=== PATIENT | male | born 1985 | race Caucasian/White ===

== ENCOUNTER 2017-05-16 16:08 | Outpatient (CLI) ==
[2016-06-27 15:04] VITALS: BMI 29.8
[2017-05-16 16:19] LABS: BASOPHILS # (AUTO) 0.1 K/uL (0-0.2); BASOPHILS % (AUTO) 0.9 % (0.0-3.0); EOSINOPHILS % (AUTO) 0.3 % (0.0-7.0); HEMATOCRIT 43.5 % (42.0-52.0); HEMOGLOBIN 15.4 g/dl (14.0-18.0); IMMATURE GRANULOCYTE % (AUTO) 0.2 % (0.0-5.0); LYMPHOCYTES # (AUTO) 1.9 K/uL (0.60-3.4); LYMPHOCYTES % (AUTO) 32.5 (10.0-50.0); MEAN CORPUSCULAR HEMOGLOBIN 32.2 pg (27.0-31.0); MEAN CORPUSCULAR HGB CONC 35.4 (31.8-35.4); MONOCYTES # (AUTO) 0.5 K/uL (0.4-2.0); MONOCYTES % (AUTO) 7.9 (0-10); NEUTROPHILS # (AUTO) 3.4 K/ul (2.0-6.9); NEUTROPHILS % (AUTO) 58.2; PLATELET COUNT 254 10^3/uL (140-440); RED BLOOD COUNT 4.78 10^6/ul (4.70-6.10); WHITE BLOOD COUNT 5.82 K/ul (4.2-10.2)
[2017-05-16 16:25] LABS: BILIRUBIN,URINE Negative (NEGATIVE); KETONES,URINE Negative (NEGATIVE); LEUKOCYTE ESTERASE ,URINE Negative (NEGATIVE); NITRITE,URINE Negative (NEGATIVE); PH,URINE 6.5 (5-9); PROTEIN,URINE Negative (NEGATIVE); URINE, BLOOD Negative (NEGATIVE)
[2017-05-16 16:26] LABS: ADD URINE MICROSCOPIC NO
[2017-05-16 16:32] LABS: ALBUMIN 4.5 g/dL (3.4-5.0); ALBUMIN/GLOBULIN RATIO 1.18; BILIRUBIN,TOTAL 0.83 mg/dL (0.00-1.20); BUN/CREATININE RATIO 13.68; CALCIUM 10.3 mg/dL (8.2-10.2); CHOL/HDL RATIO 5.5 (4.5-6.4); CREATININE 0.95 mg/dL (0.60-1.10); TOTAL PROTEIN 8.3 g/dL (6.4-8.2)
== END 2017-05-16 16:09 | disposition home or self-care (01) ==
LOC: LAB 16:08
PROVIDERS: ATTEND General Practice
DX: I10 Essential (primary) hypertension (principal); Z79.899 Other long term (current) drug therapy
CPT/HCPCS: 36415; 80053; 80061; 81001; 85025

== ENCOUNTER 2017-11-14 15:37 | Outpatient (CLI) ==
[2016-06-27 15:04] VITALS: BMI 29.8
--- NOTE | 2017-11-14 15:59 | DI ---
EXAM: CHEST FRONTAL AND LATERAL VIEWS HISTORY: Cough. COMPARISON: None FINDINGS: Heart size and mediastinal contour within normal limits. No acute infiltrates. Normal vascularity with no pleural fluid or pneumothorax. The bony thorax has no acute finding. Stabilizati on hardware over the lower cervical spine. IMPRESSION: No acute process.
== END 2017-11-14 15:38 | disposition home or self-care (01) ==
LOC: RAD 15:37
PROVIDERS: ATTEND General Practice
DX: R05 Cough (principal); M54.9 Dorsalgia, unspecified

== ENCOUNTER 2018-09-10 12:23 | Outpatient (CLI) ==
[2016-06-27 15:04] VITALS: BMI 29.8
== END 2018-09-10 12:24 | disposition home or self-care (01) ==
LOC: RHC-LAB 12:23
PROVIDERS: ATTEND General Practice
DX: J02.9 Acute pharyngitis, unspecified (principal)
CPT/HCPCS: 87502; 87651

== ENCOUNTER 2019-01-09 08:51 | Outpatient (CLI) ==
[2016-06-27 15:04] VITALS: BMI 29.8
== END 2019-01-09 08:52 | disposition home or self-care (01) ==
LOC: RHC-LAB 08:51
PROVIDERS: ATTEND General Practice
DX: M54.9 Dorsalgia, unspecified (principal); G89.29 Other chronic pain; M54.2 Cervicalgia; M89.8X1 Other specified disorders of bone, shoulder
CPT/HCPCS: 36415; 80053; 80061; 81001; 85025; 87086